=== PATIENT | male | born 1995 | race African-American/Black ===

== ENCOUNTER → 2017-11-19 | Outpatient (REF) | payer OTHER ==
[2017-11-19 23:47] LABS: CHLAMYDIA DNA AMPLIFICATION POSITIVE (NEGATIVE); GC DNA AMPLIFICATION NEGATIVE (NEGATIVE)
== END ==
LOC: M LAB REF 09:25
DX: N39.0 Urinary tract infection, site not specified (principal); Z11.3 Encounter for screening for infections with a predominantly sexual mode of transmission

== ENCOUNTER 2019-01-27 12:31 | Emergency (ER) | payer OTHER ==
[~2019-01-27] VITALS: Ht 180.3 cm; Wt 88.9 kg
[2019-01-27 13:02] LABS: BASO # 0.1 10^3/uL (0.0-0.2); BASO % 1.1 % (0.0-1.0); EOS # 0.1 10^3/uL (0.0-0.50); EOS % 1.6 % (0.0-3.0); HEMATOCRIT 44.7 % (42.0-52.0); HEMOGLOBIN 15.2 g/dl (13.5-17.5); LYMPH # 2.2 10^3/uL (1.5-6.5); LYMPH % 38.8 % (24.0-44.0); MEAN CORPUSCULAR HEMOGLOBIN 30.5 pg (27.0-33.0); MEAN CORPUSCULAR VOLUME 89.6 fl (80.0-96.0); MONO # 0.4 10^3/uL (0.0-0.8); MONO % 6.3 % (0.0-5.0); NEUTROPHILS # 2.9 10^3/uL (1.8-7.7); NEUTROPHILS % 51.8 % (36.0-66.0); PLATELET COUNT, AUTOMATED 305 10^3/uL (150-450); RED BLOOD COUNT 4.99 10^6/uL (4.30-6.10); WHITE BLOOD COUNT 5.5 10^3/uL (4.0-10.0)
[2019-01-27] MEDS ORDERED: KETOROLAC 30 MG/ML VIAL (J1885) IV ONE (13:15)
[2019-01-27] MEDS ORDERED: NS 1,000 ML IV ONE (13:15)
[2019-01-27 13:29] LABS: ALBUMIN 4.4 GM/DL (3.2-5.2); ALT/SGPT 32 U/L (12-78); BILIRUBIN,DIRECT 0.4 MG/DL (0.0-0.2); BILIRUBIN,TOTAL 1.8 MG/DL (0.2-1.0); BLOOD UREA NITROGEN 9 MG/DL (7-18); CARBON DIOXIDE LEVEL 29 MEQ/L (21-32); CHLORIDE LEVEL 108 MEQ/L (98-107); CREATININE FOR GFR 1.07 MG/DL (0.70-1.30); GLOMERULAR FILTRATION RATE > 60.0 (>60); GLUCOSE, FASTING 93 MG/DL (70-100); LIPASE 59 U/L (73-393); POTASSIUM SERUM 4.4 MEQ/L (3.5-5.1); SODIUM LEVEL 143 MEQ/L (136-145); TOTAL PROTEIN 7.2 GM/DL (6.4-8.2)
[2019-01-27] MEDS ORDERED: NAPR-837 PO (14:17)
--- NOTE | 2019-01-27 14:27 | REP ---
CT ABDOMEN AND PELVIS WITHOUT CONTRAST: 01/27/2019. Clinical history: Left lower quadrant abdominal pain. Technique: Noncontrast examination protocol followed. No prior study. Findings: CT abdomen: Lung bases are clear. Heart is not enlarged and there is no pericardial thickening or effusion. Liver, spleen, gallbladder, pancreas, stomach and adrenal glands were unremarkable. No calcified gallstones. No renal calculi identified. I see no cyst, mass or hydronephrosis. No perinephric fluid. The ureters show a normal course to the bladder. I do not see any definite ureteral dilatation or stone on either side in the abdomen or the pelvis. Appendix is seen and has some hyperdense material suggesting appendicoliths. No inflammatory change or enlargement of the appendix. There is no periaortic, retroperitoneal or mesenteric pathologic sized lymphadenopathy. Lung window review of all CT slices in the abdomen pelvis shows no perforation or free air. The bone windows show lumbar and lower thoracic spine and vertebral bodies along with posterior elements all intact. Visualized ribs are intact. CT pelvis: Sacrum, pelvis, hips and ischium were all unremarkable. In the deep right pelvis there is one calcification seen on axial image 120 and coronal image 60. This is felt to represent a phlebolith. There is no hydronephrosis above is and it does not appear to be associated with the ureter which is anterior to it. Bladder without mass, wall thickening or stone. Abdominal portion of the colon is unremarkable. The distal left colon, sigmoid and rectum within the pelvis show no inflammatory changes. Small bowel loops are without dilatation and no inflammatory changes in the mesentery are noted. No ventral or inguinal hernia nor pathologic sized inguinal adenopathy. No pelvic adenopathy. Impression: 1. No renal, ureteral or bladder stone identified. One tiny calcification in the true pelvis is felt to be a phlebolith and appears to be outside of the ureter in the deep pelvis. 2. No sign of colitis, diverticulitis, stricture, mass or other acute colonic or small bowel abnormality. Appendix is seen and not dilated. No inflammatory changes about it. Solid organs in the upper abdomen, the gallbladder, stomach and visualized bones were all grossly unremarkable. No significant finding. Electronically Signed by Francisco J Cartwright MD 01/27/2019 09:58 P
[2019-01-27 14:43] VITALS: BP 127/72
--- NOTE | 2019-01-27 14:49 | REP ---
SCROLL ULTRASOUND: 01/27/2019. Clinical history: Left groin pain. Comparison: CT abdomen pelvis today. Findings: Sonographic evaluation of the scrotum and contents without any prior studies shows the right testis 5 x 2.8 x 3.2 cm and the left 4.5 x 2.1 x 2.9 cm. This gives testicular volume 23.4 ml on the right and 14.3 ml on the left near testis shows a solid or cystic mass in the remaining homogeneous without abnormal calcification. Color-flow shows Doppler tracing resistive index of 0.47 on the right and 0.49 on the left, both normal epididymal head has a CC diameter of 7.3 mm on the right and 9.3 mm on the left. Neither shows cyst or solid mass. The scrotal wall thickness is 2 mm on the right 2.9 mm on the left. There is no hydrocele or varicocele. Evaluation of the inguinal canals and inguinal ring show no evidence of herniation on the with and without Valsalva maneuver images. Impression: 1. Normal bilateral scrotal ultrasound. The testes, epididymi and scrotal sac grossly intact. 2. Normal Doppler tracing, color flow to both testes. 3. Evaluation of the inguinal canal shows no bowel herniation on relaxed and Valsalva maneuver imaging on either side. Electronically Signed by Francisco J Cartwright MD 01/27/2019 09:59 P
[2019-01-27 16:04] LABS: CHLAMYDIA DNA AMPLIFICATION NEGATIVE (NEGATIVE); GC DNA AMPLIFICATION NEGATIVE (NEGATIVE)
== END 2019-01-27 14:50 | disposition home or self-care (01) ==
LOC: M ED 12:31
DX: R10.32 Left lower quadrant pain (principal)
CPT/HCPCS: 74176; 76857; 76870; 80048; 80076; 81001; 83690; 85025; 87491; 87591; 93976; 96361; 96374; 99284; J1885

== ENCOUNTER → 2019-03-14 | Outpatient (REF) | payer OTHER ==
[~2019-03-14] MED LIST: NAPR-837 PO
[2019-03-14 23:57] LABS: CHLAMYDIA DNA AMPLIFICATION NEGATIVE (NEGATIVE); GC DNA AMPLIFICATION NEGATIVE (NEGATIVE)
== END ==
LOC: M LAB REF 09:53
PROVIDERS: ATTEND Physician Assistant
DX: Z20.2 Contact with and (suspected) exposure to infections with a predominantly sexual mode of transmission (principal)

== ENCOUNTER → 2019-03-26 | Outpatient (REF) | payer OTHER ==
[2019-03-26 21:17] LABS: CHLAMYDIA DNA AMPLIFICATION NEGATIVE (NEGATIVE); GC DNA AMPLIFICATION NEGATIVE (NEGATIVE)
== END ==
LOC: M LAB REF 12:35
PROVIDERS: ATTEND Physician Assistant
DX: Z11.3 Encounter for screening for infections with a predominantly sexual mode of transmission (principal)

== ENCOUNTER 2019-08-19 09:47 | Emergency (ER) | payer OTHER ==
[~2019-08-19] VITALS: Ht 180.3 cm; Wt 95.7 kg
[2019-08-19 09:48] VITALS: BP 140/91
[2019-08-19] MEDS ORDERED: KETOROLAC 30 MG/ML VIAL (J1885) IV ONE (10:30)
[2019-08-19] MEDS ORDERED: ISOVUE-370 76% 100ML VIAL (Q9967) As Ordered ONE (10:51)
[2019-08-19 11:03] LABS: BASO # 0.1 10^3/uL (0.0-0.2); BASO % 0.7 % (0.0-1.0); EOS # 0.1 10^3/uL (0.0-0.5); EOS % 1.1 % (0.0-3.0); HEMATOCRIT 43.9 % (42.0-52.0); HEMOGLOBIN 14.4 g/dl (13.5-17.5); LYMPH # 1.6 10^3/uL (1.5-5.0); LYMPH % 22.1 % (24.0-44.0); MEAN CORPUSCULAR HEMOGLOBIN 29.4 pg (27.0-33.0); MEAN CORPUSCULAR HGB CONC 32.8 g/dl (32.0-36.5); MEAN CORPUSCULAR VOLUME 89.8 fl (80.0-96.0); MONO # 0.8 10^3/uL (0.0-0.8); MONO % 10.4 % (0.0-5.0); NEUTROPHILS # 4.7 10^3/uL (1.5-8.5); NEUTROPHILS % 65.6 % (36.0-66.0); PLATELET COUNT, AUTOMATED 261 10^3/uL (150-450); RED BLOOD COUNT 4.89 10^6/uL (4.30-6.10); WHITE BLOOD COUNT 7.2 10^3/uL (4.0-10.0)
--- NOTE | 2019-08-19 11:28 | REP ---
CT abdomen and pelvis with IV but without oral contrast: History: Swelling and bruising the right lower pelvis after a fall. CT contrast dose: 100 ml of intravenous Isovue 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 The lung bases are clear. The liver and the spleen are normal in size homogeneous in texture. No abnormalities noted in the gallbladder of the pancreas. No adrenal lesion is seen. The kidneys enhance symmetrically are morphologically intact. No retroperitoneal hematoma is seen. Normal appendix is seen in the right lower quadrant. Small and large intestinal bowel loops are normal in the abdomen and pelvis. No abdominal wall defect is seen. Urinary bladder, seminal vesicles, and prostate are unremarkable. This study is carried out caudally to just below the perineum. In the right proximal thigh there is a focal area of subtle low density in the medial thigh adductor muscle consistent with a small muscle tear and hematoma. This subtle area is 4.8 cm long by 3.7 cm anterior to posterior by 1.1 cm in thickness. This appears to be along the proximal fibers of the gracilis, possibly the medial aspect of the adductor longus muscle. There is mild subcutaneous edema in this region in the subcutaneous fat. Impression: Findings consistent with a small muscle tear and bryson fascial hematoma in the medial thigh abductor musculature as above. No intra-abdominal or intrapelvic abnormality. No fracture is seen. Electronically Signed by Fernando Brown MD 08/19/2019 11:18 A
--- NOTE | 2019-08-19 11:29 | REP ---
Soft-tissue ultrasound right groin region. History: Bruising of the right upper groin after a fall. Findings: Multiple small lymph nodes are seen in the right groin. The largest of these measures 2.4 x 0.5 x 1.4 cm. These do not appear pathologically. Medially in the right groin, there is a 4.6 x 3.5 x 2.2 cm area of slightly heterogeneous hypoechoic echogenicity, question intramuscular edema/partial tear. Scanning of the left groin for comparison purposes shows a similar area of muscle tissue but smaller. Impression: Heterogeneous area in the skeletal muscle in the medial aspect of the right groin, question partial muscle tear or edema. No fluid collection seen. Clinical follow-up is advised. Electronically Signed by Fernando Brown MD 08/19/2019 12:04 P
== END 2019-08-19 11:59 | disposition home or self-care (01) ==
LOC: M ED 09:47
DX: S70.11XA Contusion of right thigh, initial encounter (principal); S76.811A Strain of other specified muscles, fascia and tendons at thigh level, right thigh, initial encounter; W19.XXXA Unspecified fall, initial encounter; Y92.9 Unspecified place or not applicable; Y93.9 Activity, unspecified; Y99.9 Unspecified external cause status; R03.0 Elevated blood-pressure reading, without diagnosis of hypertension
CPT/HCPCS: 74177; 76882; 80047; 85025; 96374; 99284; J1885; Q9967

== ENCOUNTER 2019-12-22 02:39 | Emergency (ER) | payer OTHER ==
[~2019-12-22] VITALS: Ht 180.3 cm; Wt 90.9 kg
--- NOTE | 2019-12-22 03:40 | REPVR ---
PROCEDURE INFORMATION: Exam: CT Head Without Contrast Exam date and time: 12/22/2019 3:23 AM Age: 24 years old Clinical indication: Injury or trauma; Fall; Initial encounter; Blunt trauma (contusions or hematomas); Consciousness not specified; Additional info: Unknown fall May have hit head ETOH on board TECHNIQUE: Imaging protocol: Computed tomography of the head without contrast. Radiation optimization: All CT scans at this facility use at least one of these dose optimization techniques: automated exposure control; mA and/or kV adjustment per patient size (includes targeted exams where dose is matched to clinical indication); or iterative reconstruction. COMPARISON: No relevant prior studies available. FINDINGS: Brain: Normal. No hemorrhage. Unremarkable white matter. No mass effect. Ventricles: Normal. No ventriculomegaly. Bones/joints: Unremarkable. No acute fracture. Sinuses: Visualized sinuses are unremarkable. No fluid levels. Mastoid air cells: Visualized mastoid air cells are well aerated. Soft tissues: Unremarkable. IMPRESSION: No acute intracranial abnormality. Electronically signed by: Alexandre Putnam On 12/22/2019 03:39:49 AM
--- NOTE | 2019-12-22 03:42 | REPVR ---
PROCEDURE INFORMATION: Exam: CT Cervical Spine Without Contrast Exam date and time: 12/22/2019 3:23 AM Age: 24 years old Clinical indication: Injury or trauma; Fall; Initial encounter; Blunt trauma; Additional info: Unknown fall May have hit head ETOH on board TECHNIQUE: Imaging protocol: Computed tomography images of the cervical spine without contrast. Radiation optimization: All CT scans at this facility use at least one of these dose optimization techniques: automated exposure control; mA and/or kV adjustment per patient size (includes targeted exams where dose is matched to clinical indication); or iterative reconstruction. COMPARISON: No relevant prior studies available. FINDINGS: Vertebrae: Nonspecific straightening. Vertebral body and AP alignment preserved. No acute fracture. Discs/Spinal canal/Neural foramina: No definite significant central canal stenosis. Soft tissues: Unremarkable. Lungs: Lung apices are normal. Pleural space: No visible pneumothorax. IMPRESSION: No acute cervical spine fracture. Electronically signed by: Alexandre Putnam On 12/22/2019 03:42:04 AM
[2019-12-22] MEDS ORDERED: BUPIVACAINE HCL 0.5% 30 ML VIAL SC ONE (04:00)
[2019-12-22] MEDS ORDERED: MORPHINE 10 MG/ML 1ML VIAL (J2270) As Ordered ONE (04:24)
[2019-12-22] MEDS ORDERED: ceFAZolin SOD 2 GM in IV 1 EA IV ONE (05:00)
[2019-12-22] MEDS ORDERED: AUGM500T34 PO (05:12)
[2019-12-22] MEDS ORDERED: NORCO 5/325MG TABLET (BULK FOR ED) PO ONE (05:15)
[2019-12-22] MEDS ORDERED: MORPHINE 10 MG/ML 1ML VIAL (J2270) IV ONE (05:15)
[2019-12-22] MEDS ORDERED: NS 1,000 ML IV ONE (05:30)
[2019-12-22 06:02] VITALS: BP 143/74
--- NOTE | 2019-12-22 09:50 | REP ---
RIGHT HAND COMPLETE: 12/22/2019. Clinical history: Soft tissue injury to the hand. Laceration. Findings: Four views were provided. A dressing projects over the hand on the palmar surface. On the true lateral view there is one density that could be in the dressing, on this skin or an embedded foreign body such as glass. I placed an arrow on the lateral view. There is no fracture, focal bone lesion or other foreign body. Impression: 1. Question of a foreign body at the palmar aspect of the hand versus within a dressing or on the surface of the skin. No fracture, focal bone lesion or other acute finding. Electronically Signed by Francisco J Cartwright MD 12/22/2019 09:42 A
== END 2019-12-22 06:43 | disposition home or self-care (01) ==
LOC: M ED 02:39
DX: S61.411A Laceration without foreign body of right hand, initial encounter (principal); W01.10XA Fall on same level from slipping, tripping and stumbling with subsequent striking against unspecified object, initial encounter; Y92.410 Unspecified street and highway as the place of occurrence of the external cause; Y93.9 Activity, unspecified; Y99.9 Unspecified external cause status
CPT/HCPCS: 12001; 70450; 72125; 73130; 96365; 96375; 99283; G0480; J0690; J2270

== ENCOUNTER 2020-01-01 12:38 | Emergency (ER) | payer OTHER ==
[~2020-01-01] VITALS: Ht 182.9 cm; Wt 95.8 kg
[~2020-01-01 12:38] MED LIST changes: +AUGM500T34 PO
[2020-01-01] MEDS ORDERED: NAPR-885 (12:44)
[2020-01-01] MEDS ORDERED: LIDOCAINE 1% SDV 5ML VIAL DILUENT ONE (13:45)
[2020-01-01] MEDS ORDERED: cefTRIAXone SOD 1GM VIAL (J0696 PER 250MG) IM ONE (13:45)
[2020-01-01] MEDS ORDERED: KEFL500C17 PO (14:09)
--- NOTE | 2020-01-01 14:12 | REP ---
Clinical: Trauma. Rule out foreign body. Technique: AP, lateral views right hand . Findings: The osseous structures and joint spaces are intact and normal. There is no evidence for acute fracture or dislocation. Surrounding soft tissues are unremarkable. No subcutaneous emphysema or radiodense foreign body. Impression: No evidence for foreign body. Electronically Signed by Mason Lara MD 01/01/2020 02:04 P
[2020-01-01 14:19] VITALS: BP 135/82
== END 2020-01-01 14:44 | disposition home or self-care (01) ==
LOC: M ED 12:38
DX: L03.113 Cellulitis of right upper limb (principal); S61.411A Laceration without foreign body of right hand, initial encounter; W25.XXXA Contact with sharp glass, initial encounter; Y92.89 Other specified places as the place of occurrence of the external cause
CPT/HCPCS: 73120; 96372; 99283; J0696